=== PATIENT | male | born 1970 | race Caucasian/White ===

== ENCOUNTER 2024-06-03 06:26 | Day surgery (SDC) | payer BC, SELFPAY | END 2024-06-03 15:19 | disposition home or self-care (01) | LOC: GI 06:26 | PROVIDERS: ATTENDING PHYSICIAN Internal Medicine Gastroenterology | DX: Z12.11 Encounter for screening for malignant neoplasm of colon (principal); K64.8 Other hemorrhoids; D12.2 Benign neoplasm of ascending colon; D12.7 Benign neoplasm of rectosigmoid junction; K63.5 Polyp of colon | CPT/HCPCS: 45385; 88305 ==